=== PATIENT | male | born 2000 | race Caucasian/White ===

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

== ENCOUNTER → 2022-05-08 | Outpatient (CLI) | payer BC, SELFPAY ==
--- NOTE | 2022-05-08 15:31 | RAD_ITS ---
HISTORY: Positive PPD test. TECHNIQUE: XR Chest 2 Views. COMPARISON: None. FINDINGS: CARDIOMEDIASTINAL BORDERS: Cardiac silhouette within normal limits in size. Mediastinal contour unremarkable. LUNGS: Radiographically clear. PLEURA: No pleural effusion or pneumothorax seen. OSSEOUS STRUCTURES: Unremarkable. RAD/Chest PA and Lateral IMPRESSION: No acute cardiopulmonary process identified. No evidence of active pulmonary tuberculosis. Electronically Signed: Daxa Ernandez MD at 8:23 EDT ,
== END | disposition home or self-care (01) ==
LOC: MTRAD 15:31
PROVIDERS: PCP Family Medicine; Referring Provider Family Medicine; Visit Provider Family Medicine
DX: Z92.89 Personal history of other medical treatment (principal)
CPT/HCPCS: 71046

== ENCOUNTER 2022-05-12 16:08 | Outpatient (CLI) | payer BC, SELFPAY ==
[2022-05-14 19:07] LABS: QNTFERON TB Mitogen Value > 10.00 IU/mL (.); QNTFERON TB Nil Value 0.02 IU/mL (.); QNTFERON TB1+ Ag Value 0.02 IU/mL (.); QNTFERON TB2+ Ag Value 0.02 IU/mL (.)
[2022-05-15 08:47] LABS: QNTIFERON TB Positive Criteria Negative (Negative)
== END 2022-05-12 23:59 | disposition home or self-care (01) ==
LOC: MFPLAB 16:08
PROVIDERS: PCP Family Medicine; Visit Provider Family Medicine
DX: Z92.89 Personal history of other medical treatment (principal)
CPT/HCPCS: 36415; 86480

== ENCOUNTER → 2023-01-21 | Outpatient (CLI) | payer OTHER, SELFPAY ==
--- NOTE | 2023-01-21 14:56 | RAD_ITS ---
STUDY: X-RAY - LUMBOSACRAL SPINE REASON FOR EXAM: Male, 22 years old. Low back pain. TECHNIQUE: 6 view(s) of the lumbosacral spine, including lateral flexion and extension, were obtained. COMPARISON: None FINDINGS: Normal lumbar lordosis. There is no substantial scoliosis. There is normal alignment of the vertebrae. Limited flexion and extension with no abnormal motion. Normal vertebral bodies and endplates. Normal disc space heights. Normal bilateral sacral ala, sacroiliac joints, and visualized sacrum. Normal visualized soft tissue structures. RAD/L/S Spine w Bend Min 6 Vw IMPRESSION: Limited flexion and extension no abnormal motion. No acute abnormality. Electronically Signed: John Lilly, at 14:23 EDT ,
== END | disposition home or self-care (01) ==
PROVIDERS: PCP Family Medicine; Referring Provider Family Medicine; Visit Provider Family Medicine
DX: M54.9 Dorsalgia, unspecified (principal)
CPT/HCPCS: 72114